=== PATIENT | male | born 1985 | race Hispanic/Latino ===

== ENCOUNTER 2018-04-02 10:03 | Emergency (ER) | payer OTHER ==
[~2018-04-02] VITALS: Ht 175.3 cm; Wt 133.8 kg
--- NOTE | 2018-04-02 11:44 | Diagnostic Imaging Report ---
History: Trauma Comparison studies: None Technique: Axial images were obtained from the skull base to the vertex. Coronal and sagittal reconstructions obtained from the axial data. Dose modulation, iterative reconstruction, and/or weight based adjustment of the mA/kV was utilized to reduce the radiation dose to as low as reasonably achievable. 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 No fractures, blastic or lytic lesions. Extra-axial spaces: No masses. No fluid collections. Brain sulci: Appropriate for age. Ventricles: Normal in size and configuration. No hydrocephalus. Parenchyma: No abnormal densities. No masses, hemorrhage, acute or chronic cortical vascular insults. Sellar/suprasellar region: No abnormalities Craniocervical junction: Patent foramen magnum. No Chiari one malformation. IMPRESSION: No abnormalities. Signed by: Dr. Dominik Canada M.D. on 04/02/2018 11:41 AM
--- NOTE | 2018-04-02 11:46 | Diagnostic Imaging Report ---
History: Trauma Comparison studies: None Technique: Axial images were obtained through the cervical region.. Coronal and sagittal images reconstructed from the axial data. Dose modulation, iterative reconstruction, and/or weight based adjustment of the mA/kV was utilized to reduce the radiation dose to as low as reasonably achievable. Intravenous contrast: None Findings: Fractures: None. Soft tissues: No gross abnormalities. Atlantoaxial articulation: Intact. Alignment: Straightening of the usual lordosis is probably positional.. No scoliosis. Cervicomedullary junction: No abnormalities. The foramen magnum is patent. Vertebrae: No infection or neoplasm. Degenerative changes: The discs are normal in height and density. 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 Patent spinal canal. IMPRESSION: 1. No acute abnormalities. 2. Cannot adequately evaluate for ligament, spinal cord and or vascular abnormalities. Signed by: Dr. Dominik Canada M.D. on 04/02/2018 11:43 AM
--- NOTE | 2018-04-02 11:49 | Diagnostic Imaging Report ---
History: Trauma Comparison studies: None Technique:: Axial were obtained from mid T12 through the sacrum Coronal and sagittal images reconstructed from the axial data. Dose modulation, iterative reconstruction, and/or weight based adjustment of the mA/kV was utilized to reduce the radiation dose to as low as reasonably achievable. Intravenous contrast: None Findings: Alignment: Normal lordosis . No scoliosis . Soft tissues: No abnormalities. Paraspinal muscles: Well-preserved. No atrophy . Vertebrae: Normal in height and density from L1 to S1 . No compression fractures, infection or neoplasm. Degenerative changes: Mild in the sacroiliac joints. Normal discs. Patent spinal canal and foramina. No disc herniations. IMPRESSION: 1. No abnormalities in the lumbar spine. 2. Cannot adequately evaluate for ligament, conus and or vascular abnormalities. Signed by: Dr. Dominik Canada M.D. on 04/02/2018 11:45 AM
[2018-04-02] MEDS ORDERED: KETOROLAC TROMETHAMINE 60 MG/2 ML VIAL IM ONE (13:30)
[2018-04-02] MEDS ORDERED: LORAZEPAM 1 MG TAB PO ONE (13:30)
== END 2018-04-02 13:21 | disposition home or self-care (01) ==
LOC: ER 10:03
DX: M54.5 Low back pain (principal); S30.0XXA Contusion of lower back and pelvis, initial encounter; W18.39XA Other fall on same level, initial encounter; Y99.0 Civilian activity done for income or pay
CPT/HCPCS: 70450; 72125; 72131; 99284